=== PATIENT | male | born 1990 | race African-American/Black ===

== ENCOUNTER 2017-09-11 02:20 | Emergency (ER) | payer OTHER ==
[~2017-09-11] VITALS: Ht 177.8 cm; Wt 73.0 kg
[~2017-09-11 02:20] MED LIST: PREV30CA36 PO; Z.0.NO CURRENT MEDS
[2017-09-11 02:21] VITALS: BP 147/94; PULSE 69; RESP 16; TEMP 97.9; O2SAT 100
[2017-09-11] MEDS ORDERED: IBUPROFEN 400 MG TAB PO ONE (03:30)
--- NOTE | 2017-09-11 04:01 | RADRPT ---
EXAM DATE/TIME: 09/11/2017 03:42 CORRECTION Corrected on: September 11, 2017; [facility] COMPARISON: No previous studies available for comparison. INDICATIONS : Left submandibular jaw pain for 1 year. RADIATION DOSE: 33.18 CTDIvol (mGy) MEDICAL HISTORY : None SURGICAL HISTORY : None. ENCOUNTER: Initial ACUITY: 1 yr PAIN SCORE: 10/10 LOCATION: Left mandible TECHNIQUE: Volumetric scanning of the facial bones was performed. Using automated exposure control and adjustme nt of the mA and/or kV according to patient size, radiation dose was kept as low as reasonably achiev able to obtain optimal diagnostic quality images. DICOM format image data is available electronicall y for review and comparison. FINDINGS: ORBITS: The orbital and infraorbital osseous structures are intact. The retroconal structures have a normal configuration. No radiopaque foreign bodies are seen. NASAL BONE: The nasal bone and maxillary spine are intact ZYGOMATIC ARCHES: Symmetric without evidence of fracture. SINUSES: Mild chronic left maxillary sinus disease. Otherwise, the paranasal sinuses are clear. No air-fluid l evels. NASAL CAVITY: Mild nasal septal deviation to the right. SOFT TISSUES: No radiopaque foreign bodies seen. No soft-tissue swelling is seen. INTRACRANIAL: No intracranial air seen. CRIBIFORM PLATE: Grossly intact. The mandible is grossly intact. There is diffuse homogeneous enlargement of the left submandibular gland measuring 4.2 x 3.3 cm. No s urrounding inflammatory changes are seen. No loculated fluid collections are demonstrated. CONCLUSION: 1. Mild left maxillary sinus disease. 2. Diffuse homogeneous enlargement of the left submandibular gland measuring 4.2 x 3.3 cm.. 3. The bony structures of the mandible are grossly intact. Jace Daugherty MD on September 11, 2017 at 3:57 Board Certified Radiologist. This report was verified electronically. Jace Daugherty MD on September 11, 2017 at 4:32 Board Certified Radiologist. This report was verified electronically.
[2017-09-11] MEDS ORDERED: IBUP1TAB5 PO (06:27)
--- NOTE | 2017-09-11 06:27 | PD ---
HPI . Oral/dental pain Chief Complaint: Oral / Dental Pain or Problem Time Seen by Provider: 03:21 Travel History International Travel<30 days: No Contact w/Intl Traveler<30days: No Traveled to known affect area: No History of Present Illness HPI 27-year-old male complains of left submandibular area swelling for over a year. Patient notes increased in size lately and increased pain. Patient cannot comment on size change with meals or salivation. Patient has no fevers chills sweats, no weight loss, no stridor, no difficulty swallowing, no voice change. PFSH Past Medical History Narrative Medical Past medical history reviewed Medical History: Denies Significant Hx Diminished Hearing: No Immunizations Current: Yes Tetanus Vaccination: Unknown Influenza Vaccination: No Past Surgical History Surgical History: No Previous Surgery Social History Alcohol Use: No Tobacco Use: Yes Substance Use: No Allergies-Medications (Allergen,Severity, Reaction): Coded Allergies: No Known Allergies (Verified Adverse Reaction, Unknown, 09/11/17) Reported Meds & Prescriptions Reported Meds & Active Scripts Active No Active Prescriptions or Reported Medications Narrative Medication Allergies and medications reviewed Review of Systems Except as stated in HPI: all other systems reviewed are Neg General / Constitutional: No: Fever Eyes: No: Visual changes HENT: No: Headaches Cardiovascular: No: Chest Pain or Discomfort Respiratory: No: Shortness of Breath Gastrointestinal: No: Abdominal Pain Genitourinary: No: Dysuria Musculoskeletal: No: Pain Skin: No Rash Neurologic: No: Weakness Psychiatric: No: Depression Endocrine: No: Polydipsia Hematologic/Lymphatic: No: Easy Bruising Physical Exam Narrative GENERAL: Awake alert oriented 3 no acute distress SKIN: Warm and dry. Color is normal diaphoresis cyanosis or pallor HEAD: Atraumatic. Normocephalic. EYES: Pupils equal and round. No scleral icterus. No injection or drainage. ENT: No nasal bleeding or discharge. Mucous membranes pink and moist. No intraoral lesions noted., One intact. No buccal swelling or tenderness NECK: Trachea midline. No JVD. Left submandibular area swelling that is discrete, somewhat fluctuant, mildly tender. No surrounding erythema CARDIOVASCULAR: Regular rate and rhythm. RESPIRATORY: No accessory muscle use. Clear to auscultation. Breath sounds equal bilaterally. GASTROINTESTINAL: Abdomen soft, non-tender, nondistended. Hepatic and splenic margins not palpable. MUSCULOSKELETAL: Extremities without clubbing, cyanosis, or edema. No obvious deformities. NEUROLOGICAL: Awake and alert. No obvious cranial nerve deficits. Motor grossly within normal limits. Five out of 5 muscle strength in the arms and legs. Normal speech. PSYCHIATRIC: Appropriate mood and affect; insight and judgment normal. Data Data Last Documented VS Vital Signs Date Time Temp Pulse Resp B/P (MAP) Pulse Ox O2 Delivery O2 Flow Rate FiO2 09/11/17 02:21 97.9 69 16 147/94 (111) 100 Room Air Orders Orders Ibuprofen (Motrin) (09/11/17 03:30) Ct Facial Bones W/O Iv Cont (09/11/17 ) MDM Medical Decision Making Medical Screen Exam Complete: Yes Emergency Medical Condition: Yes Medical Record Reviewed: Yes Differential Diagnosis Tolerated duct stone, submandibular mass, enlarged lymph node Narrative Course CT facial bones/neck with little for one genius enlargement of submandibular gland on left. No sialolithiasis noted Diagnosis Primary Impression: Submandibular gland hypertrophy Referrals: Enid Elliott MD Patient Instructions: General Instructions, Soft Tissue Mass (ED) Additional Instructions: Uterine enlargement obvious submandibular salivary gland on the left side. Follow-up with oral surgery. Return for worsening Scripts Ibuprofen (Ibuprofen) 400 Mg Tab 400 MG PO Q8H Y for PAIN SCALE 1 TO 10, #15 TAB 0 Refills Prov: Rebel Zepeda MD 09/11/17 Disposition: 01 DISCHARGE HOME Condition: Stable Rebel Zepeda MD Sep 11, 2017 06:27
[2017-09-11 06:41] VITALS: BP 125/75
== END 2017-09-11 06:45 | disposition home or self-care (01) ==
LOC: NEPE 02:20
DX: R59.9 Enlarged lymph nodes, unspecified (principal); J32.0 Chronic maxillary sinusitis; Z72.0 Tobacco use
CPT/HCPCS: 70486; 99284

== ENCOUNTER 2017-10-09 08:01 | Emergency (ER) | payer OTHER ==
[~2017-10-09] VITALS: Ht 177.8 cm; Wt 68.0 kg
[~2017-10-09 08:01] MED LIST changes: +IBUP1TAB5 PO; -PREV30CA36 PO; -Z.0.NO CURRENT MEDS
[2017-10-09 08:04] VITALS: BP 137/77; PULSE 77; RESP 12; TEMP 98.4; O2SAT 99
--- NOTE | 2017-10-09 09:35 | PD ---
HPI Chief Complaint: Oral / Dental Pain or Problem Time Seen by Provider: 09:26 Travel History International Travel<30 days: No Contact w/Intl Traveler<30days: No Traveled to known affect area: No History of Present Illness HPI 27-year-old male presents to the emergency department requesting a referral for oral surgery for a left submandibular gland hypertrophy that he was diagnosed with on September 11 here at [place]. He was told he needed referral and doesn't have a primary care provider. He denies difficulty swallowing, unusual drooling. Denies Fever, vomiting. Denies airway edema, difficulty breathing, shortness of breath. No primary care provider. Denies allergies. Denies significant past medical history. Has no other medical complaints. No other modifying factors or associated signs and symptoms. PFSH Past Medical History Medical History: Denies Significant Hx Diminished Hearing: No Immunizations Current: Yes Past Surgical History Surgical History: No Previous Surgery Social History Alcohol Use: Yes Tobacco Use: Yes Substance Use: No Allergies-Medications (Allergen,Severity, Reaction): Coded Allergies: No Known Allergies (Verified Adverse Reaction, Unknown, 10/09/17) Reported Meds & Prescriptions Reported Meds & Active Scripts Active No Active Prescriptions or Reported Medications Review of Systems Except as stated in HPI: all other systems reviewed are Neg Physical Exam Narrative GENERAL: Well-nourished, well-developed male patient, in no acute distress SKIN: Warm and dry. HEAD: Atraumatic. Normocephalic. EYES: Pupils equal and round. No scleral icterus. No injection or drainage. ENT: Mucosa pink and moist. No erythema or exudates. No uvular edema. No uvular , palatal, or tonsillar deviation. Airway patent. Nasal turbinates appear normal without nasal blood, purulent drainage or septal hematoma. NECK: Trachea midline. Left mandibular area with soft, palpable mass measuring approx 3-4cm in diameter; without erythema or tenderness on palpation. CARDIOVASCULAR: Regular rate. RESPIRATORY: No accessory muscle use. GASTROINTESTINAL: Flat. MUSCULOSKELETAL: No obvious deformities. No clubbing. No cyanosis. No edema. NEUROLOGICAL: Awake and alert. Oriented 3. No obvious cranial nerve deficits. Motor grossly within normal limits. Normal speech. PSYCHIATRIC: Appropriate mood and affect; insight and judgment normal. Data Data Last Documented VS Vital Signs Date Time Temp Pulse Resp B/P (MAP) Pulse Ox O2 Delivery O2 Flow Rate FiO2 10/09/17 10:04 10/09/17 08:04 98.4 77 12 99 Orders Orders Mandatory Outpatient Referral (10/09/17 09:43) Ed Discharge Order (10/09/17 09:47) [facility] Medical Decision Making Medical Screen Exam Complete: Yes Emergency Medical Condition: Yes Medical Record Reviewed: Yes Differential Diagnosis Medical clearance, encounter for referral, submandibular gland hypertrophy Narrative Course 27-year-old male presents for testing a referral for oral surgeon. He was seen on September [address] scan verified: Mild left maxillary sinus disease; Diffuse homogeneous enlargement of the left submandibular gland measuring 4.2 x 3.3 cm; The bony structures of the mandible are grossly intact. Patient was given a copy of the CT report. I spoke with Dr. Napoles and she agrees the patient needs to see ENT. Mandatory outpatient referral for patient to follow- up to ENT. Instructed patient to follow up with ENT. Instructed patient to follow up with primary care provider. Patient verbalizes understanding and agreement with treatment plan. Patient is medically cleared and stable for discharge. Discussed reasons to return to the emergency department. Patient agrees with treatment plan. The patients vital signs are stable and the patient is stable for outpatient follow-up and treatment. Patient discharged home, stable and in no acute distress. Diagnosis Primary Impression: Submandibular gland hypertrophy Referrals: [facility] Ear [facility] Nose [facility] Throat Specialist Primary Care Physician Patient Instructions: General Instructions Additional Instructions: Follow-up with ear nose throat specialist Follow-up with primary care provider Return to the emergency department immediately with worsening of symptoms Med/Other Pt SpecificInfo: No Change to Meds, No Meds Exist/No RX given Scripts No Active Prescriptions or Reported Meds Disposition: 01 DISCHARGE HOME Condition: Stable Ashanti Dickens Oct 09, 2017 09:35
== END 2017-10-09 10:05 | disposition home or self-care (01) ==
LOC: NEPD 08:01
DX: R59.9 Enlarged lymph nodes, unspecified (principal); Z72.0 Tobacco use
CPT/HCPCS: 99281